=== PATIENT | female | born 1975 | race Caucasian/White ===

== ENCOUNTER 2021-12-05 02:39 | Emergency (ER) | payer BC, SELFPAY ==
[2021-12-05 02:42] VITALS: BP 137/97; PULSE 92; RESP 18; TEMP 36.6; O2SAT 97
--- NOTE | 2021-12-05 03:00 | ED.EYEPROB ---
HPI - Eye Problem General Chief complaint: Eye Problems Stated complaint: rt eye pain Time Seen by Provider: 12/05/21 02:49 Source: patient and family Mode of arrival: ambulatory Limitations: no limitations History of Present Illness HPI Narrative: 46-year-old otherwise healthy here with complaints of bilateral leg pain since yesterday. Patient states that she is having yellowish drainage. She wears contacts. She denies any trauma MD chief complaint: eye pain and eye redness Onset (ago): day(s) (1) Onset description: gradual Duration: constant Location: both eyes Eye Symptoms: burning, redness, discharge and photophobia Place: home Mechanism: other (Contact lenses) Severity: moderate If Pain, Quality: burning Associated symptoms: none Treatments Prior to Arrival: none Related Data Patient tetanus UTD: Yes Review of Systems Review of Systems: All systems reviewed & are unremarkable except as noted in HPI and below Constitutional: Constitutional: Reports no additional constitutional complaints Eyes: Eyes: Reports as per HPI ENT: Reports system reviewed and no additional complaints, except as documented Cardiovascular: Cardiovascular: Reports no additional cardiovascular complaints Respiratory: Respiratory: Reports no additional respiratory complaints Gastrointestinal: Gastrointestinal: Reports no additional gastrointestinal complaints Musculoskeletal: Musculoskeletal: Reports no additional musculoskeletal complaints Exam Narrative: GENERAL: Well-appearing, well-nourished, and in no acute distress. HEAD: Normocephalic, atraumatic. EYES: PERRLA and EOMI. increased uptake of fluorescein dye bilaterally, sclera injected NECK: Supple. CHEST: Clear to auscultation. No respiratory distress. HEART: Regular rate and rhythm. No murmur heard. Normal peripheral pulses. EXTREMITIES: Normal range of motion. No edema. SKIN: Warm, dry, no rash. NEURO: No focal deficits. Alert and oriented x3. PSYCH: Normal mood and affect. Course Course Emergency Course: Examined both eyes with fluorescein dye there is marked uptake in the lower quadrant area in both corneas Vital Signs Vital signs: Vital Signs Temperature 36.6 C 12/05/21 02:42 Pulse Rate 92 12/05/21 02:42 Respiratory Rate 18 12/05/21 02:42 Blood Pressure 137/97 H 12/05/21 02:42 Pulse Oximetry 97 12/05/21 02:42 Oxygen Delivery Room Air 12/05/21 02:42 Temperature 36.6 C 12/05/21 02:42 Pulse Rate 92 12/05/21 02:42 Respiratory Rate 18 12/05/21 02:42 Blood Pressure 137/97 H 12/05/21 02:42 Pulse Oximetry 97 12/05/21 02:42 Oxygen Delivery Room Air 12/05/21 02:42 Discharge Plan Discharge Clinical Impression: Corneal abrasion Patient Disposition: Home, Self-Care Condition: Stable Instructions: Antibiotic Form, Corneal Abrasion (DC) Additional Instructions: antibiotic as prescribed , follow with our eye doctor in the next few days. do not wear contact lens till you are okay by your eye doctor [facility] [phone] Prescriptions: New tobramycin 0.3 % drops 3 drp EACH EAR QID Qty: 5 0RF Follow-up/Referrals: Yvrose Delgado MD [Primary Care Provider] - Time of Disposition: 03:04
[2021-12-05] MEDS: TETRACAINE HCL 0.5% OPHTH SOLN 4 ML BTL 1 DROP (03:13)
[2021-12-05] MEDS: FLUORESCEIN SOD 1 MG/STRIP (03:13)
[2021-12-05] MEDS: TOBRAMYCIN/DEXAMETHASONE OP 2.5 ML BTL 1 DROP EACH EYE (03:24)
== END 2021-12-05 03:26 | disposition home or self-care (01) ==
LOC: ANHED 03:16
PROVIDERS: Emergency Provider Family Medicine; PCP Family Medicine
DX: S05.02XA Injury of conjunctiva and corneal abrasion without foreign body, left eye, initial encounter (principal); S05.01XA Injury of conjunctiva and corneal abrasion without foreign body, right eye, initial encounter; X58.XXXA Exposure to other specified factors, initial encounter
CPT/HCPCS: 99283; A9270